=== PATIENT | female | born 1955 | race Caucasian/White ===

== ENCOUNTER → 2017-08-29 | Outpatient (CLI) | payer OTHER ==
[~2017-08-29] VITALS: Ht 165.1 cm; Wt 83.3 kg
[2017-08-29] VITALS (16 sets, daily range): BP systolic 125–154; BP diastolic 79–99; PULSE 67–77
[~2017-08-29] MED LIST: AMITRIPTYLINE H25 M1 PO; HCTZ 25MG TAB25 MG PO; KLONOPIN 0.5MG0.5 MG PO; MELATONIN5 M1 SL; MULTIPLE VITAMI1 CAP PO; NATURE'S BLEND500 M1 PO; NEURONTIN300 MG/CAP PO; NORVASC 5MG5 MG/TAB PO; PHARMASSURE ZIN50 MG PO; SYNTHROID0.175 MG PO; TAGAMET200 MG PO; TOPROL XL 50MG50 MG PO; TURMERIC500 MG PO; VITAMIN A10k PO; VITAMIN E 400 U4001 PO; VITAMINC1000TA PO; ZYRTEC 10MG10 MG PO
== END ==
LOC: COL.RAD 08-07 09:00
DX: K75.81 Nonalcoholic steatohepatitis (NASH) (principal)

== ENCOUNTER → 2020-04-12 | Outpatient (CLI) | payer MEDICARE, OTHER | LOC: COL.VAS 07:37 | DX: M79.661 Pain in right lower leg (principal); M25.561 Pain in right knee; M79.89 Other specified soft tissue disorders ==

== ENCOUNTER → 2021-08-30 | Outpatient (CLI) | payer MEDICARE, OTHER | LOC: COL.VAS 10:11 | DX: Z47.89 Encounter for other orthopedic aftercare (principal); S82.62XD Displaced fracture of lateral malleolus of left fibula, subsequent encounter for closed fracture with routine healing; X58.XXXD Exposure to other specified factors, subsequent encounter ==